=== PATIENT | female | born 1940 | race Caucasian/White ===

== ENCOUNTER 2017-03-17 13:12 | Emergency (ER) | payer OTHER ==
[~2017-03-17] VITALS: Ht 165.1 cm; Wt 86.2 kg
[~2017-03-17 13:12] MED LIST: ADULT LOW DOSE81 MG PO; ALLEGRA180 MG PO; ALPRAZOLAM 0.0.25 M1 PO; AMITRIPTYLINE H50 M3 PO; B-100 COMPLEX1 EAC1 PO; CALTRATE 600 +1 EACH PO; EVISTA PO; FISH OIL 1,2001 EAC4 PO; GLUCOSAMINE &1 EACH PO; LISINOPRIL40 MG PO; MULTIVITAMINS PO; VISION VITAMIN1 EACH PO; VITAMIN D1000 UNI1 PO; VITAMIN E400 UNIT PO; VITCB500GO PO; ZANTAC 150MG T150 M1 PO
[2017-03-17] MEDS ORDERED: NORCO 5-325 TA1 EACH PO (14:59)
[2017-03-17 15:25] VITALS: BP 174/81
== END 2017-03-17 15:30 | disposition home or self-care (01) ==
LOC: ER 13:12
DX: M25.552 Pain in left hip (principal); I10 Essential (primary) hypertension; F41.9 Anxiety disorder, unspecified; K21.9 Gastro-esophageal reflux disease without esophagitis; Z90.710 Acquired absence of both cervix and uterus